=== PATIENT | male | born 1985 | race Caucasian/White ===

== ENCOUNTER 2023-07-17 14:36 | Emergency (ER) | payer OTHER, SELFPAY ==
[2023-07-17 14:37] VITALS: BP 122/73; PULSE 81; RESP 14; TEMP 36.1; O2SAT 99; BMI 22.6
[2023-07-17 21:45] VITALS: BP 132/85; PULSE 71; RESP 16; O2SAT 99
--- NOTE | 2023-07-17 21:59 | EDS_ITS ---
HPI History of Present Illness Chief Complaint: Abd Pain Informant: patient Narrative Narrative: Patient presents to the ER for over 3 months of waxing and waning pain that feels like burning with numbness from his mid right low back wrapping around in a strip to his bellybutton occasionally giving him numbness in his right proximal anterolateral thigh. He states when the pain is there it is severe. Seems to get it randomly. He cannot find a trigger. Not associated with any nausea or vomiting or food. States has had diarrhea off and on, seems to be random as well. Denies any trauma. He had this pain 3 years ago he went to an ER several times for it in [place], he was given diclofenac and then he did a telemedicine visit and was prescribed Celebrex. He still having the pain and is concerned. It is not different today. Actually has no pain right now. He denies any bowel or bladder dysfunction other than the occasional diarrhea. No weakness in his legs or saddle anesthesias. With regards to chickenpox he had it as a child and he actually had shingles but was not in this area was up in his right upper chest. He has noticed no rash with this even when he had it 3 years ago at the beginning. [facility] Medical History Atrial fibrillation Home Medications ?Medication ?Instructions ?Recorded ?Last Taken ?Type aspirin 81 mg chewable tablet 1 tab PO DAILY 07/17/23 Unknown History esomeprazole magnesium 20 mg 20 mg PO Q24H 07/17/23 Unknown History capsule,delayed release (Nexium 24HR) gabapentin 300 mg capsule 300 mg PO TID #89 caps 07/17/23 Unknown Rx Allergy/AdvReac Type Severity Reaction Status Date / Time No Known Allergies Allergy Verified 07/17/23 14:39 Social History Smoking Status: Current every day smoker tobacco type: cigarettes ROS ROS ED Constitutional Constitutional ED: Denies chills or fever(s) Eyes Eyes: Denies change in vision or diplopia ENT ENT ED: Denies rhinorrhea or sore throat Cardiovascular Cardiovascular: Denies chest pain or palpitations Respiratory/Chest Respiratory/Chest: Denies cough or dyspnea Gastrointestinal Gastrointestinal: Reports as per HPI, abdominal pain and diarrhea; Denies melena, nausea or vomiting Genitourinary Genitourinary ED: Reports as per HPI and flank pain; Denies difficulty urinating, dysuria, hematuria, urinary incontinence or urinary urgency Musculoskeletal Musculoskeletal: Reports back pain; Denies neck pain Integumentary Denies abscess or rash Neurologic Neurologic: Denies headache(s), paresthesias or weakness Psychiatric Psychiatric: Denies suicidal ideation or suicidal thoughts EXAM Physical Exam Const Vital Signs: 07/17/23 14:37 07/17/23 21:45 Temperature 97 F L Temperature Source Temporal Pulse Rate 81 71 Respiratory Rate 14 16 Blood Pressure 122/73 H 132/85 H Blood Pressure Mean 89 100 Pulse Ox 99 99 Oxygen Delivery Method Room Air Room Air Positive well nourished and well developed General Appearance ED: well developed and NAD HEENT Reports moist mucous membranes normocephalic and atraumatic Eyes PERRL and EOMs intact bilaterally Neck full ROM and supple Resp normal respiratory effort and clear to auscultation bilaterally Cardio regular rate, regular rhythm and no murmurs GI non-tender and non-distended Auscultation: normoactive bowel sounds Palpation: soft Back/Spine no CVA tenderness Back/Spine Narrative: No rash flank, back, abdomen. Normal inspection. Painless range of motion. General Back: other FROM Extremity normal to inspection General Extremety ED: Negative for edema, pulses abnormal or tenderness General Extremity: Negative for edema or pulses abnormal Neuro oriented x3, CN's II-XII intact bilaterally and no sensory deficits noted Sensorium / Orientation: awake and alert Motor Exam: strength 5/5 throughout Skin no rashes or lesions noted and no wounds MDM MDM MDM Narrative Medical decision making narrative: I believe this is a right T10 sensory radiculopathy. The description and location are consistent with this, especially when he states it goes right to his umbilicus. He does not have CVA tenderness to suggest an emergent kidney problem, and this is chronic. He does not have a doctor. He has a history of A-fib nurses ran an EKG it shows a sinus rhythm at 77 he has no symptoms of A- fib right now. I do not think he needs emergent workup of any kind. An MRI may show the problem and since the differential includes disc disease, there are spinal cord pathologies in the differential diagnosis, but it also could be postherpetic neuralgia. Will place him on gabapentin and refer him to a PCP. He is amenable to that. Rhythm Strip Rhythm Strip: Sinus Rhythm Rate: 77 Ectopy: None EKG Initial EKG: Attestation: I personally reviewed and interpreted this EKG as follows: Interpretation: Sinus Rhythm and No Acute Injury Pattern Comments: Normal EKG Discharge Plan Triage Chief Complaint: Abd Pain ED Provider: Rolf Ziegler Dx/Rx/DC Orders Clinical Impression: Thoracic radiculopathy Instructions: ED Neuropathy, Peripheral Prescriptions: New gabapentin 300 mg capsule 300 mg PO TID Qty: 89 0RF Rx Instructions: on first day, 1 cap po BID No Action esomeprazole magnesium [Nexium 24HR] 20 mg capsule,delayed release(DR/EC) 20 mg PO Q24H aspirin 81 mg tablet,chewable 1 tab PO DAILY Primary Care Provider: Jeniffer Woodall Referrals: Lexi Fong DO [Med Staff - Active Staff] - (call for appt if you do not have a local PCP) Activity Restrictions/Additional Instructions: On 07/17 if you can get the prescription, take 1 tablet twice that day but then going forward, 1 tablet 3 times per day and follow-up. May mix meloxicam, i buprofen, and/or Tylenol if needed with this. Print Language: Frisian Disposition Disposition: Home, Self Care
--- NOTE | 2023-07-17 22:09 | EKG12_ITS ---
Test Reason : Blood Pressure : / mmHG Vent. Rate : 077 BPM Atrial Rate : 077 BPM P-R Int : 148 ms QRS Dur : 082 ms QT Int : 366 ms P-R-T Axes : 075 083 058 degrees QTc Int : 414 ms Normal sinus rhythm Normal ECG Confirmed by Nash Holloway ([id number]), news copy editor CHIARA MULTANI ([id number]) on 07/18/2023 1:10:57 PM Referred By: Confirmed By:Nash Holloway
[2023-07-17] MEDS: Gabapentin 300 MG Capsule 600 MG PO (22:42)
[2023-07-17 22:43] VITALS: BP 110/67; PULSE 71; RESP 18; TEMP 36.7; O2SAT 97
== END 2023-07-17 22:48 | disposition home or self-care (01) ==
LOC: ED 22:08
PROVIDERS: Emergency Provider Emergency Medicine; Visit Provider Emergency Medicine
DX: M54.14 Radiculopathy, thoracic region (principal); I48.91 Unspecified atrial fibrillation; F17.210 Nicotine dependence, cigarettes, uncomplicated
CPT/HCPCS: 93005; 99282

== ENCOUNTER 2025-01-27 10:39 | Emergency (ER) | payer SELFPAY ==
[2025-01-27 10:39] VITALS: BP 145/87; PULSE 96; RESP 14; TEMP 36.6; O2SAT 98; BMI 22.1
--- NOTE | 2025-01-27 11:18 | EDS_ITS ---
HPI History of Present Illness HPI Narrative: Left upper extremity and posterior shoulder discomfort for a week. Prior history of the same due to inflammation. Denies any fall injury or trauma. No prior surgery. He is right-hand dominant. Chief Complaint: Upper Extremity Injury Informant: patient Occured/Mechanism Mechanism/Context: No injury and No blunt trauma Onset/Context/Timing Onset: Days (7 days.) Context: Gradual Onset Timing: Continuous Current Severity: Mild Maximum Severity: Moderate Associated Symptoms Associated Symptoms: Negative for Parasthesia, Weakness or Loss of Funtion Narrative Narrative: 39-year-old male history of A-fib on aspirin only. No other medications. Complaining of discomfort to his left upper shoulder and his left arm. Worse with movement. No chest pain or shortness of breath. Similar episode 6 months ago and he was treated as this was inflammation. He saw physical therapy and had a steroid injection in his forearm. Denies any fall injury or trauma. No fever, redness or swelling. He is never had surgery of this arm before. He is right-hand dominant. He does do lifting at work 2 cup boards. Prior similar symptoms: Yes Recent Illness/Hospitalization: No PFSH PFS Medical History Atrial fibrillation Home Medications ?Medication ?Instructions ?Recorded ?Last Taken ?Type aspirin 81 mg chewable tablet 1 tab PO DAILY 07/17/23 Unknown History esomeprazole magnesium 20 mg 20 mg PO Q24H 07/17/23 Un known History capsule,delayed release (Nexium 24HR) gabapentin 300 mg capsule 300 mg PO TID #89 caps 07/16 Unknown Rx metaxalone 800 mg tablet 800 mg PO TID muscle pain 7 days 01/27/25 Unknown Rx #21 tabs prednisone 20 mg tablet 40 mg (2 x 20 mg) PO DAILY # 14 tabs 01/27/25 Unknown Rx Allergy/AdvReac Type Severity Reaction Status Date / Time No Known Allergies Allergy Verified 01/27/25 10:42 Social History Smoking Status: Current every day smoker tobacco type: cigarettes ROS ROS ED ROS Narrative Denies recent illness. Constitutional Constitutional ED: Denies chills or fever(s) Eyes Eyes: Denies blurry vision ENT ENT ED: Denies ear pain or rhinorrhea Cardiovascular Cardiovascular: Denies chest pain or palpitations Respiratory/Chest Respiratory/Chest: Denies cough or dyspnea Gastrointestinal Gastrointestinal: Denies abdominal pain or constipation Genitourinary Genitourinary ED: Denies dysuria or hematuria Musculoskeletal Musculoskeletal: Reports other; Denies back pain or myalgias Integumentary Denies abscess or Abrasions Neurologic Neurologic: Denies headache(s) Psychiatric Psychiatric: Denies anxiety or depression Endocrine Endocrinology: Denies cold intolerance Hematologic/Lymphatic Hematologic/Lymphatic: Denies easy bleeding or easy bruising Allergic/Immunologic Allergic/Immunologic ED: Denies mouth swelling, tongue swelling or urticaria EXAM Physical Exam Narrative Exam Narrative: Well-appearing 39-year-old male. Vital signs stable afebrile. No acute distress. H EENT exam pupils are react light. Moist mucous members. Neck nontender. No muscle spasm. Trachea midline. Normal range of motion. Back nontender except soft tissue mild left posterior shoulder. There is no discoloration or redness. Consistent with a muscle spasm. He has full range of motion of his shoulder. There is no redness or swelling. Biceps and triceps are unremarkable and nontender. He is able to flex and extend his left elbow. He is able to flex and extend the left wrist. Nontender no deformity. Normal radial pulse. 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 Normal sensation. No swelling. Normal in appearance. Right upper and both lower extremities are unremarkable. Neurologically he is awake alert. He is answering questions following commands. Lungs are clear to auscultation bilaterally. Heart regular rhythm no murmur. Abdomen is soft. Neurologic exam is normal. No focal motor deficits or weakness. No numbness. Const Vital Signs: 01/27/25 10:39 Temperature 98 F Temperature Source Temporal Pulse Rate 96 Respiratory Rate 14 Blood Pressure 145/87 H Blood Pressure Mean 106 Pulse Ox 98 Oxygen Delivery Method Room Air MDM MDM MDM Narrative Medical decision making narrative: 39-year-old male discomfort to his left posterior shoulder and arm consistent with like a muscle spasm and/or inflammation. Hand is neurovascularly intact. There is no signs of infection. No history or signs of trauma. Be placed on prednisone 40 mg a day first dose given in the ER and Skelaxin for the muscle spasm in his back. Follow-up with the clinic. Return if worse.Patient is comfortable with the plan. History & Record Review Discussion w/independent historian: Patient Discharge Plan Triage Chief Complaint: Upper Extremity Injury ED Provider: Maikol Boateng Dx/Rx/DC Orders Clinical Impression: Muscle spasm of left shoulder, Inflammation of soft tissue Instructions: ED Muscle Spasm, ED Myofascial Pain Syndrome Prescriptions: New prednisone 20 mg tablet 40 mg PO DAILY Qty: 14 0RF metaxalone 800 mg tablet 800 mg PO TID 7 Days Qty: 21 0RF No Action esomeprazole magnesium [Nexium 24HR] 20 mg capsule,delayed release(DR/EC) 20 mg PO Q24H aspirin 81 mg tablet,chewable 1 tab PO DAILY gabapentin 300 mg capsule 300 mg PO TID Qty: 89 0RF Rx Instructions: on first day, 1 cap po BID Primary Care Provider: Care Physician,No Primary Referrals: Tessy Mason MD [Med Staff - Outside Sales Representative Insurance, Internal Medicine] - 1 Week if not improving Care Physician,No Primary [Primary Care Provider, Medical] Activity Restrictions/Additional Instructions: Hot shower, warm bath and massage. Prednisone daily for a week to knock down the inflammation in the soft tissues your arm. Skelaxin 1 pill 3 times a day to help you have the muscle spasms in your upper left back. This should progressively get better if not follow-up with your doctor. Print Language: [place] Disposition Disposition: Home, Self Care
[2025-01-27 11:29] VITALS: BP 145/87; PULSE 96; RESP 14; TEMP 36.6; O2SAT 98
== END 2025-01-27 11:36 | disposition home or self-care (01) ==
LOC: ED 11:31
PROVIDERS: Emergency Provider Emergency Medicine; Visit Provider Emergency Medicine
DX: M62.838 Other muscle spasm (principal); I48.91 Unspecified atrial fibrillation; M79.89 Other specified soft tissue disorders; Z79.82 Long term (current) use of aspirin; Z79.899 Other long term (current) drug therapy; F17.210 Nicotine dependence, cigarettes, uncomplicated
CPT/HCPCS: 99282